=== PATIENT | male | born 2000 | race Caucasian/White ===

== ENCOUNTER → 2021-08-20 | Outpatient (CLI) | payer OTHER | LOC: M CARPUL 10:03 | PROVIDERS: ATTEND Internal Medicine | DX: R07.9 Chest pain, unspecified (principal) ==

== ENCOUNTER → 2021-08-27 | Outpatient (REF) | LOC: M PLAIMG 10:49 | PROVIDERS: ATTEND Internal Medicine | DX: R06.02 Shortness of breath (principal) ==